=== PATIENT | male | born 1945 | race African-American/Black ===

== ENCOUNTER → 2019-02-14 | Outpatient (CLI) | payer MEDICARE, BC | END | disposition home or self-care (01) | LOC: CVU 07:46 | PROVIDERS: ATTEND Internal Medicine Cardiovascular Disease | DX: I10 Essential (primary) hypertension (principal); R07.89 Other chest pain; I99.8 Other disorder of circulatory system; I70.8 Atherosclerosis of other arteries | CPT/HCPCS: 78452; 93017; 93306; 93880; 93978; A9502 ==